=== PATIENT | female | born 1935 | race Two or more races ===

== ENCOUNTER 2016-12-14 05:03 | Outpatient (RCR) | payer OTHER ==
[~2016-12-14] VITALS: Ht 170.2 cm; Wt 66.0 kg
[2016-12-14] MEDS ORDERED: NS 550ML IV ONE (05:04)
[2016-12-14] MEDS ORDERED: Succinylcholine 20mg/ml 10ml vial ONE (05:04)
[2016-12-14] MEDS ORDERED: Methohexital Sodium Syr 100mg/10ml IVP ONE (05:04)
== END 2016-12-25 | disposition home or self-care (01) ==
LOC: ECT 05:03
DX: F33.2 Major depressive disorder, recurrent severe without psychotic features (principal); E11.9 Type 2 diabetes mellitus without complications; I10 Essential (primary) hypertension
CPT/HCPCS: 90870; J0330; J7040

== ENCOUNTER 2017-02-15 05:45 | Outpatient (RCR) | payer OTHER ==
[~2017-02-15] VITALS: Ht 170.2 cm; Wt 65.8 kg
[2017-02-15] MEDS ORDERED: Succinylcholine 20mg/ml 10ml vial ONE (05:46)
[2017-02-15] MEDS ORDERED: NS 550ML IV ONE (05:46)
[2017-02-15] MEDS ORDERED: Methohexital Sodium Syr 100mg/10ml IVP ONE (05:46)
== END 2017-02-24 | disposition home or self-care (01) ==
LOC: ECT 05:45
DX: F33.2 Major depressive disorder, recurrent severe without psychotic features (principal); E11.9 Type 2 diabetes mellitus without complications; I10 Essential (primary) hypertension
CPT/HCPCS: 90870; J0330; J7040

== ENCOUNTER 2017-04-19 05:20 | Outpatient (RCR) | payer OTHER ==
[~2017-04-19] VITALS: Ht 170.2 cm; Wt 66.0 kg
[2017-04-19] MEDS ORDERED: NS 550ML IV ONE (05:21)
[2017-04-19] MEDS ORDERED: Methohexital Sodium Syr 100mg/10ml IVP ONE (05:21)
[2017-04-19] MEDS ORDERED: Succinylcholine 20mg/ml 10ml vial ONE (05:21)
== END 2017-04-26 | disposition home or self-care (01) ==
LOC: ECT 05:20
DX: F25.9 Schizoaffective disorder, unspecified (principal)
CPT/HCPCS: 90870; J0330; J7040

== ENCOUNTER 2017-06-21 04:50 | Outpatient (RCR) | payer OTHER ==
[~2017-06-21] VITALS: Ht 170.2 cm; Wt 66.0 kg
[2017-06-21] MEDS ORDERED: NS 550ML IV ONE (04:51)
[2017-06-21] MEDS ORDERED: Methohexital Sodium Syr 100mg/10ml IVP ONE (04:51)
[2017-06-21] MEDS ORDERED: Succinylcholine 20mg/ml 10ml vial ONE (04:51)
== END 2017-06-27 | disposition home or self-care (01) ==
LOC: ECT 04:50
DX: F33.2 Major depressive disorder, recurrent severe without psychotic features (principal)
CPT/HCPCS: 90870; J0330; J7040

== ENCOUNTER 2017-08-30 05:18 | Outpatient (RCR) | payer OTHER ==
[~2017-08-30] VITALS: Ht 170.2 cm; Wt 66.0 kg
[2017-08-30] MEDS ORDERED: Methohexital Sodium Syr 100mg/10ml IVP ONE (05:19)
[2017-08-30] MEDS ORDERED: Succinylcholine 20mg/ml 10ml vial ONE (05:19)
[2017-08-30] MEDS ORDERED: NS 500ML IV ONE (05:19)
[2017-08-30 09:27] VITALS: BP 161/80
[2017-08-30] MEDS ORDERED: Sodium Chloride 500ML 500 ML IV ONE (09:43)
[2017-08-30 09:45] VITALS: BP 149/68
[2017-08-30 09:50] VITALS: BP 141/76
[2017-08-30 09:55] VITALS: BP 151/72
[2017-08-30 10:00] VITALS: BP 143/74
== END 2017-09-26 | disposition home or self-care (01) ==
LOC: ECT 05:18
DX: F33.2 Major depressive disorder, recurrent severe without psychotic features (principal)
CPT/HCPCS: 90870; J0330; J7040

== ENCOUNTER 2017-11-08 06:15 | Outpatient (RCR) | payer OTHER ==
[~2017-11-08] VITALS: Ht 30.5 cm; Wt 0.5 kg
[2017-11-08] MEDS ORDERED: Methohexital Sodium Syr 100mg/10ml IVP ONE (06:16)
[2017-11-08] MEDS ORDERED: Succinylcholine 20mg/ml 10ml vial ONE (06:16)
[2017-11-08] MEDS ORDERED: NS 500ML ONE (06:16)
[2017-11-08 09:59] VITALS: BP 176/76
[2017-11-08 10:18] VITALS: BP 165/75
[2017-11-08] MEDS ORDERED: Sodium Chloride 500ML 500 ML IV ONE (10:18)
[2017-11-08 10:23] VITALS: BP 150/60
[2017-11-08 10:28] VITALS: BP 143/56
[2017-11-08 10:33] VITALS: BP 135/53
== END 2017-11-27 | disposition home or self-care (01) ==
LOC: ECT 06:15
DX: F33.2 Major depressive disorder, recurrent severe without psychotic features (principal); E11.9 Type 2 diabetes mellitus without complications; I10 Essential (primary) hypertension
CPT/HCPCS: 90870; J0330; J7040

== ENCOUNTER 2018-01-10 05:09 | Outpatient (RCR) | payer OTHER ==
[~2018-01-10] VITALS: Ht 170.2 cm; Wt 66.0 kg
[2018-01-10] MEDS ORDERED: Succinylcholine 20mg/ml 10ml vial ONE (05:10)
[2018-01-10] MEDS ORDERED: NS 500ML ONE (05:10)
[2018-01-10] MEDS ORDERED: Methohexital Sodium Syr 100mg/10ml IVP ONE (05:10)
[2018-01-10 09:54] VITALS: BP 180/88
[2018-01-10] MEDS ORDERED: Sodium Chloride 500ML 500 ML IV ONE (10:14)
[2018-01-10 10:15] VITALS: BP 146/72
[2018-01-10 10:20] VITALS: BP 148/70
[2018-01-10 10:25] VITALS: BP 151/63
[2018-01-10 10:30] VITALS: BP 145/62
== END 2018-01-25 | disposition home or self-care (01) ==
LOC: ECT 05:09
DX: F33.2 Major depressive disorder, recurrent severe without psychotic features (principal)
CPT/HCPCS: 90870; J0330; J7040

== ENCOUNTER 2018-03-14 09:42 | Outpatient (RCR) | payer OTHER ==
[~2018-03-14] VITALS: Ht 170.2 cm; Wt 66.0 kg
[2018-03-14 09:39] VITALS: BP 152/82
[2018-03-14] MEDS ORDERED: NS 500ML ONE (09:43)
[2018-03-14] MEDS ORDERED: Methohexital Sodium Syr 100mg/10ml IVP ONE (09:43)
[2018-03-14] MEDS ORDERED: Succinylcholine 20mg/ml 10ml vial ONE (09:43)
[2018-03-14] MEDS ORDERED: Sodium Chloride 500ML 500 ML IV ONE (09:58)
[2018-03-14 10:00] VITALS: BP 163/65
[2018-03-14 10:05] VITALS: BP 153/59
[2018-03-14 10:10] VITALS: BP 134/68
[2018-03-14 10:15] VITALS: BP 139/68
== END 2018-03-27 | disposition home or self-care (01) ==
LOC: ECT 09:42
DX: F33.2 Major depressive disorder, recurrent severe without psychotic features (principal)
CPT/HCPCS: 90870; J0330; J7040

== ENCOUNTER 2018-05-09 08:15 | Outpatient (RCR) | payer OTHER ==
[~2018-05-09] VITALS: Ht 33 cm; Wt 0.5 kg
[2018-05-09] MEDS ORDERED: Succinylcholine 20mg/ml 10ml vial ONE (08:16)
[2018-05-09] MEDS ORDERED: NS 500ML ONE (08:16)
[2018-05-09] MEDS ORDERED: Methohexital Sodium Syr 100mg/10ml IVP ONE (08:16)
[2018-05-09 09:13] VITALS: BP 162/79
[2018-05-09] MEDS ORDERED: Sodium Chloride 500ML 500 ML IV ONE (09:26)
[2018-05-09 09:30] VITALS: BP 144/55
[2018-05-09 09:35] VITALS: BP 143/59
[2018-05-09 09:40] VITALS: BP 129/52
[2018-05-09 09:45] VITALS: BP 131/48
== END 2018-05-27 | disposition home or self-care (01) ==
LOC: ECT 08:15
DX: F33.2 Major depressive disorder, recurrent severe without psychotic features (principal)
CPT/HCPCS: 90870; J0330; J7040

== ENCOUNTER 2018-07-04 06:46 | Outpatient (RCR) | payer MEDICARE, OTHER ==
[~2018-07-04] VITALS: Ht 170.2 cm; Wt 66.0 kg
[2018-07-04] MEDS ORDERED: NS 500ML ONE (06:47)
[2018-07-04] MEDS ORDERED: Methohexital Sodium Syr 100mg/10ml IVP ONE (06:47)
[2018-07-04] MEDS ORDERED: Succinylcholine 20mg/ml 10ml vial ONE (06:47)
[2018-07-04 09:30] VITALS: BP 169/84
[2018-07-04] MEDS ORDERED: Sodium Chloride 500ML 500 ML IV ONE (09:47)
[2018-07-04 09:50] VITALS: BP 145/61
[2018-07-04 09:55] VITALS: BP 140/60
[2018-07-04 10:00] VITALS: BP 139/62
[2018-07-04 10:05] VITALS: BP 137/56
== END 2018-07-27 | disposition home or self-care (01) ==
LOC: ECT 06:46
DX: F33.2 Major depressive disorder, recurrent severe without psychotic features (principal)
CPT/HCPCS: 90870; J0330; J7040

== ENCOUNTER 2018-09-05 05:11 | Outpatient (RCR) | payer MEDICARE ==
[~2018-09-05] VITALS: Ht 170.2 cm; Wt 66.0 kg
[2018-09-05] MEDS ORDERED: NS 500ML ONE (05:12)
[2018-09-05] MEDS ORDERED: Succinylcholine 20mg/ml 10ml vial ONE (05:12)
[2018-09-05] MEDS ORDERED: Methohexital Sodium Syr 100mg/10ml IVP ONE (05:12)
[2018-09-05 09:36] VITALS: BP 144/72
[2018-09-05 09:55] VITALS: BP 142/57
[2018-09-05 10:00] VITALS: BP 135/55
[2018-09-05 10:05] VITALS: BP 127/50
[2018-09-05 10:10] VITALS: BP 128/48
== END 2018-09-26 | disposition home or self-care (01) ==
LOC: ECT 05:11
DX: F33.2 Major depressive disorder, recurrent severe without psychotic features (principal)
CPT/HCPCS: 90870; J0330; J2405; J7040

== ENCOUNTER 2018-11-14 06:26 | Outpatient (RCR) | payer MEDICARE ==
[~2018-11-14] VITALS: Ht 170.2 cm; Wt 66.0 kg
[2018-11-14] MEDS ORDERED: NS 500ML ONE (06:27)
[2018-11-14] MEDS ORDERED: Methohexital Sodium Syr 100mg/10ml IVP ONE (06:27)
[2018-11-14] MEDS ORDERED: Succinylcholine 20mg/ml 10ml vial ONE (06:27)
[2018-11-14 09:34] VITALS: BP 183/77
[2018-11-14 09:50] VITALS: BP 189/72
[2018-11-14 09:55] VITALS: BP 158/59
[2018-11-14 10:00] VITALS: BP 159/56
[2018-11-14 10:05] VITALS: BP 160/60
== END 2018-11-27 | disposition home or self-care (01) ==
LOC: ECT 06:26
DX: F33.2 Major depressive disorder, recurrent severe without psychotic features (principal); E11.9 Type 2 diabetes mellitus without complications; I10 Essential (primary) hypertension
CPT/HCPCS: 90870; J0330; J7040

== ENCOUNTER 2019-01-16 05:02 | Outpatient (RCR) | payer MEDICARE ==
[~2019-01-16] VITALS: Ht 30.5 cm; Wt 0.5 kg
[2019-01-16] MEDS ORDERED: Succinylcholine 20mg/ml 10ml vial ONE (05:03)
[2019-01-16] MEDS ORDERED: Methohexital Sodium 500mg Vial IVP ONE (05:03)
[2019-01-16] MEDS ORDERED: NS 500ML ONE (05:03)
[2019-01-16 09:36] VITALS: BP 170/91
[2019-01-16 09:55] VITALS: BP 137/56
[2019-01-16 10:00] VITALS: BP 133/55
[2019-01-16 10:05] VITALS: BP 135/55
[2019-01-16 10:10] VITALS: BP 135/52
== END 2019-01-25 | disposition home or self-care (01) ==
LOC: ECT 05:02
DX: F33.2 Major depressive disorder, recurrent severe without psychotic features (principal)
CPT/HCPCS: 90870; J0330; J3490; J7040

== ENCOUNTER 2019-03-20 04:32 | Outpatient (RCR) | payer MEDICARE ==
[~2019-03-20] VITALS: Ht 30.5 cm; Wt 0.5 kg
[2019-03-20] MEDS ORDERED: NS 500ML ONE (07:00)
[2019-03-20] MEDS ORDERED: Succinylcholine 20mg/ml 10ml vial ONE (07:00)
[2019-03-20] MEDS ORDERED: Methohexital Sodium Syr 100mg/10ml IVP ONE (07:00)
[2019-03-20 09:40] VITALS: BP 153/79
[2019-03-20 09:55] VITALS: BP 143/59
[2019-03-20 10:00] VITALS: BP 142/61
[2019-03-20 10:05] VITALS: BP 148/62
[2019-03-20 10:10] VITALS: BP 152/71
== END 2019-03-27 | disposition home or self-care (01) ==
LOC: ECT 04:32
DX: F33.2 Major depressive disorder, recurrent severe without psychotic features (principal)
CPT/HCPCS: 90870; J0330; J7040

== ENCOUNTER 2019-05-22 09:30 | Outpatient (RCR) | payer MEDICARE ==
[~2019-05-22] VITALS: Ht 30.5 cm; Wt 0.5 kg
[2019-05-22] MEDS ORDERED: Succinylcholine 20mg/ml 10ml vial ONE (09:31)
[2019-05-22] MEDS ORDERED: Methohexital Sodium 500mg Vial IVP ONE (09:31)
[2019-05-22] MEDS ORDERED: NS 500ML ONE (09:31)
[2019-05-22 09:56] VITALS: BP 146/69
[2019-05-22 10:15] VITALS: BP 133/52
[2019-05-22 10:20] VITALS: BP 142/50
[2019-05-22 10:25] VITALS: BP 133/54
[2019-05-22 10:30] VITALS: BP 137/51
== END 2019-05-27 | disposition home or self-care (01) ==
LOC: ECT 09:30
DX: F33.2 Major depressive disorder, recurrent severe without psychotic features (principal)
CPT/HCPCS: 90870; J0330; J3490; J7040

== ENCOUNTER 2019-07-24 04:52 | Outpatient (RCR) | payer MEDICARE ==
[~2019-07-24] VITALS: Ht 170.2 cm; Wt 52.2 kg
[2019-07-24] MEDS ORDERED: Methohexital Sodium Syr 100mg/10ml IVP ONE (04:53)
[2019-07-24] MEDS ORDERED: NS 500ML ONE (04:53)
[2019-07-24] MEDS ORDERED: Succinylcholine 20mg/ml 10ml vial ONE (04:53)
[2019-07-24 09:44] VITALS: BP 157/80
[2019-07-24 09:55] VITALS: BP 135/57
[2019-07-24 10:00] VITALS: BP 120/44
[2019-07-24 10:05] VITALS: BP 126/42
[2019-07-24 10:10] VITALS: BP 125/42
== END 2019-07-27 | disposition home or self-care (01) ==
LOC: ECT 04:52
DX: F33.2 Major depressive disorder, recurrent severe without psychotic features (principal)
CPT/HCPCS: 90870; J0330; J7040

== ENCOUNTER 2019-09-18 06:25 | Outpatient (RCR) | payer MEDICARE ==
[~2019-09-18] VITALS: Ht 170.2 cm; Wt 52.2 kg
[~2019-09-18 06:25] MED LIST: Methohexital Sodium Syr 100mg/10ml IVP ONE; NS 500ML ONE; Succinylcholine 20mg/ml 10ml vial ONE
[2019-09-18 10:11] VITALS: BP 173/85
[2019-09-18 10:24] VITALS: BP 157/89
[2019-09-18 10:29] VITALS: BP 153/56
[2019-09-18 10:34] VITALS: BP 138/76
[2019-09-18 10:39] VITALS: BP 131/51
== END 2019-09-26 | disposition home or self-care (01) ==
LOC: ECT 06:25
DX: F33.2 Major depressive disorder, recurrent severe without psychotic features (principal)
CPT/HCPCS: 90870; J0330; J7040

== ENCOUNTER 2020-01-15 05:40 | Outpatient (RCR) | payer MEDICARE ==
[~2020-01-15] VITALS: Ht 30.5 cm; Wt 0.5 kg
[2020-01-15 09:27] VITALS: BP 169/77
[2020-01-15 09:40] VITALS: BP 145/57
[2020-01-15 09:45] VITALS: BP 132/47
[2020-01-15 09:50] VITALS: BP 135/52
[2020-01-15 09:55] VITALS: BP 135/55
== END 2020-01-26 | disposition home or self-care (01) ==
LOC: ECT 05:40
DX: F33.2 Major depressive disorder, recurrent severe without psychotic features (principal)
CPT/HCPCS: 90870

== ENCOUNTER 2020-03-18 05:00 | Outpatient (RCR) | payer MEDICARE ==
[~2020-03-18] VITALS: Ht 170.2 cm; Wt 52.2 kg
[2020-03-18] MEDS ORDERED: Labetalol 5mg/ml 20ml vial IV ONE (05:01)
[2020-03-18] MEDS ORDERED: Succinylcholine 20mg/ml 10ml vial ONE (05:01)
[2020-03-18] MEDS ORDERED: NS 500ML ONE (05:01)
[2020-03-18] MEDS ORDERED: Methohexital Sodium Syr 100mg/10ml IVP ONE (05:01)
[2020-03-18 09:16] VITALS: BP 166/80
[2020-03-18 09:25] VITALS: BP 141/51
[2020-03-18 09:30] VITALS: BP 126/47
[2020-03-18 09:35] VITALS: BP 130/48
[2020-03-18 09:40] VITALS: BP 126/48
== END 2020-03-27 | disposition home or self-care (01) ==
LOC: ECT 05:00
DX: F33.2 Major depressive disorder, recurrent severe without psychotic features (principal)
CPT/HCPCS: 90870; J0330; J7040

== ENCOUNTER 2020-05-20 05:51 | Outpatient (RCR) | payer MEDICARE ==
[~2020-05-20] VITALS: Ht 30.5 cm; Wt 0.5 kg
[2020-05-20] VITALS (7 sets, daily range): BP systolic 128–161; BP diastolic 50–75
[2020-05-20] MEDS ORDERED: NS 500ML ONE (05:52)
[2020-05-20] MEDS ORDERED: Methohexital Sodium Syr 100mg/10ml IVP ONE (05:52)
[2020-05-20] MEDS ORDERED: Succinylcholine 20mg/ml 10ml vial ONE (05:52)
== END 2020-05-27 | disposition home or self-care (01) ==
LOC: ECT 05:51
DX: F33.2 Major depressive disorder, recurrent severe without psychotic features (principal)
CPT/HCPCS: 90870; J0330; J7040

== ENCOUNTER 2020-07-22 04:46 | Outpatient (RCR) | payer MEDICARE ==
[2020-07-22] VITALS (7 sets, daily range): BP systolic 128–163; BP diastolic 47–75
[~2020-07-22] VITALS: Ht 170.2 cm; Wt 52.2 kg
[2020-07-22] MEDS ORDERED: Succinylcholine 20mg/ml 10ml vial ONE (04:47)
[2020-07-22] MEDS ORDERED: Labetalol 5mg/ml 20ml vial IV ONE (04:47)
[2020-07-22] MEDS ORDERED: NS 500ML ONE (04:47)
[2020-07-22] MEDS ORDERED: Methohexita Syr 100mg/10ml IVP ONE (04:47)
== END 2020-07-27 | disposition home or self-care (01) ==
LOC: ECT 04:46
DX: F33.2 Major depressive disorder, recurrent severe without psychotic features (principal)
CPT/HCPCS: 90870; J0330; J7040

== ENCOUNTER 2020-09-16 04:45 | Outpatient (RCR) | payer MEDICARE ==
[2020-09-16] VITALS (7 sets, daily range): BP systolic 126–146; BP diastolic 47–65
[~2020-09-16] VITALS: Ht 170.2 cm; Wt 52.2 kg
[2020-09-16] MEDS ORDERED: NS 500ML ONE (04:46)
[2020-09-16] MEDS ORDERED: Methohexita Syr 100mg/10ml IVP ONE (04:46)
[2020-09-16] MEDS ORDERED: Succinylcholine 20mg/ml 10ml vial ONE (04:46)
== END 2020-09-26 | disposition home or self-care (01) ==
LOC: ECT 04:45
DX: F33.2 Major depressive disorder, recurrent severe without psychotic features (principal)
CPT/HCPCS: 90870; J0330; J7040

== ENCOUNTER 2020-11-16 05:28 | Outpatient (RCR) | payer MEDICARE ==
[~2020-11-16] VITALS: Ht 170.2 cm; Wt 52.2 kg
[2020-11-16] VITALS (7 sets, daily range): BP systolic 116–150; BP diastolic 45–68
[2020-11-16] MEDS ORDERED: Succinylcholine 20mg/ml 10ml vial ONE (05:29)
[2020-11-16] MEDS ORDERED: NS 500ML ONE (05:29)
[2020-11-16] MEDS ORDERED: Methohexita Syr 100mg/10ml IVP ONE (05:29)
== END 2020-11-27 | disposition home or self-care (01) ==
LOC: ECT 05:28
DX: F33.2 Major depressive disorder, recurrent severe without psychotic features (principal)
CPT/HCPCS: 90870; J0330; J7040